=== PATIENT | female | born 1985 | race Caucasian/White ===

== ENCOUNTER → 2020-07-18 | Outpatient (CLI) | payer OTHER ==
[2015-12-08 08:00] VITALS: BP 106/62
[~2020-07-18] MED LIST: ALBU2.5V8 INH; CLON1TAB PO; DOCU-109 PO; IBUP-1060 PO; OXYC1TAB15 PO; SERT100T PO
--- NOTE | 2020-07-18 10:56 | KCIC ---
MRI of the lumbar spine without contrast CLINICAL HISTORY: Chronic low back pain which is worsening. TECHNIQUE: Unenhanced T1-weighted and T2-weighted sagittal and axial and inversion recovery sagittal images of the lumbar spine were obtained. FINDINGS: Minimal S-shaped curvature of the thoracolumbar spine is seen. Degenerative signal changes and loss of height are seen involving the L4-5 and L5-S1 discs. A 8mm hemangioma is seen involving th e L1 vertebral body. A 1.3 cm hemangioma is seen involving the L2 vertebral body. The conus medullari s is normal morphology, position, and signal characteristics. The L1-2, L2-3 and L3-4 disc spaces are within normal limits. At the L4-5 disc space there is a mild generalized disc bulge. Superimposed on this disc bulge is a f ocal central disc protrusion. This measures 3 mm in AP diameter. Degenerative changes are seen involv ing the facet joints bilaterally. There are small facet joint effusions bilaterally. There is mild li gamentum flavum hypertrophy bilaterally. These findings when combined do not result in significant ce ntral spinal canal or neural foraminal stenosis. At the L5-S1 disc space there is a mild to moderate generalized disc bulge. This is eccentric to the left. Degenerative changes are seen involving the facet joints bilaterally. There are small facet myriam nt effusions bilaterally. These findings do not result in significant central spinal canal or neural foraminal stenosis. IMPRESSION: The changes of degenerative disc disease are seen involving the lower lumbar spine. These findings do not result in significant central spinal canal or neural foraminal stenosis. Electronically signed by: Eitan Hutchins MD (07/18/2020 10:54 AM) [id number]
== END ==
LOC: KCIC MRI 08:29
PROVIDERS: ATTEND Family Medicine
DX: M47.817 Spondylosis without myelopathy or radiculopathy, lumbosacral region (principal); M48.07 Spinal stenosis, lumbosacral region; G89.29 Other chronic pain
CPT/HCPCS: 72148

== ENCOUNTER → 2021-01-09 | Outpatient (CLI) | payer OTHER ==
[2015-12-08 08:00] VITALS: BP 106/62
[~2021-01-09] MED LIST changes: +CARI3CAP PO; +LAMO50TA3 PO; +OMEP40CA7 PO; +SERT50TA PO
--- NOTE | 2021-01-09 15:30 | PDOC1 ---
INITIAL PAIN CONSULT DATE OF SERVICE: DOS: DATE: 01/09/21 TIME: 15:24 CHIEF COMPLAINT: Chief Complaint: Low back and left lower extremity pain HISTORY OF PRESENT ILLNESS: 35-year-old female presents with history of pain low back left lower extremity for 10 years plus not the result of any specific injury or accident that she is aware but has significant pain in the low back and left lower extremity getting worse over the past 6 to 8 months without any specific injury or accident patient reports is getting worse with walking standing changing positions with pain in the low back radiating to the left posterior gluteus posterior thigh posterior calf into the ankle and foot, no motor loss but significant fatigability of the left lower extremity with standing walking. Patient reports is worse with sitting for greater than 30 minutes wakes her from sleep about 2-3 times a night does not affect her bowel bladder control but does affect her ability to walk and stand which is affecting her ability to work. Patient reports has had physical therapy also chiropractic treatment also currently doing exercise which were all temporarily helpful but only for about 2 to 3 days to week patient is taking hydrocodone which does decrease the pain has had this most recently as yesterday. Patient reports her disability rating 0-10 10 being the worst is an 8 with family home responsibilities and recreation as well as self-care and life support activities 6 with social activity 5 with sexual behavior 9 with occupational activities. Patient did have an MRI scan lumbar spine showing L4-5 mild generalized disc bulge with focal central disc protrusion superimposed L5-S1 showing mild to moderate generalized disc bulging eccentric to the left with small facet joint effusions bilaterally as well. Patient reports no bowel or bladder incontinence. PAST MEDICAL HISTORY: PMH: Arthritis, cigarette smoking PREVIOUS SURGERIES: Past Surgical Hx: Hysterectomy 2016, right foot surgery 2016. CURRENT MEDICATIONS: Current Meds: Active Scripts Medications Dose Route/Sig Max Daily Dose Days Date Category Omeprazole 40 Mg Capsule.dr 1 Cap PO DAILY 01/09/21 Reported Vraylar (Cariprazine Hydrochloride) 3 Mg Capsule 1 Cap PO DAILY 30 01/09/21 Reported Lamotrigine 50 Mg Tab.er.24 1 Tab PO DAILY 30 01/09/21 Reported Zoloft (Sertraline Hcl) 50 Mg Tablet 1 Tab PO DAILY 01/09/21 Reported Percocet 5-325 Mg Tablet (Oxycodone/Acetaminophen) 1 Each Tablet 1-2 Tab PO Q4-6HRS 12/08/15 Rx Colace (Docusate Sodium) 100 Mg Capsule 1 Cap PO BID 12/08/15 Rx ALLERGIES; Allergies: Coded Allergies: No Known Drug Allergies (Unverified , 12/07/15) FAMILY HISTORY: Family Hx: Breast cancer SOCIAL HISTORY: Social Hx: Patient drinks alcohol very rarely smokes cigarettes about half a pack a day has since 2002 continues smoke does not use any illegal illicit or recreational drugs, is single lives locally in [facility] and 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 REVIEW OF SYSTEMS: ROS: Positive for those items mentioned in history of present illness, all systems a re reviewed, otherwise negative ,and are complete full and well-documented on patient's chart. PHYSICAL EXAM: VS: Blood pressure 147/108 pulse 74 respirations 18 temperature 98.5 F height is 5 feet 10 inches weight is 277 pounds PE: PHYSICAL EXAMINATION: GENERAL: The patient is awake, alert, oriented, appropriate, very pleasant in demeanor HEENT: Shows normocephalic, atraumatic. Extraocular movements are intact and symmetrical. Oral cavity: Mucous membranes moist and pink. Dentition is intact. NECK: Shows anterior throat supple without palpable lymphadenopathy noted. Swal low reflex symmetrical. CHEST: Shows normal on inspection. Breath sounds are clear bilaterally, distant no rales rhonchi or wheeze. HEART: Shows S1, S2 clear. No murmurs auscultated. ABDOMEN: Soft, nontender, nondistended, obese. No palpable organomegaly is noted. No rebound or guarding demonstrated. BACK: Shows spine grossly in the midline. Normal-appearing cervical lordotic curvature. T no here is slightly increased thoracic kyphosis, some minor flattening of the lumbar lordotic curvature. Lumbar paraspinous muscles show symmetrical on inspection, on palpation shows some moderate tenderness diffusely throughout the upper, middle and lower distribution of the paraspinous muscles bilaterally and also into the lower thoracic paraspinous musculature, firm and tender, but without specific trigger points, without radiation of pain. The patient has good rotational motion of the lumbar spine, both laterally as well as extension and flexion without significant difficulty. No tenderness over the spinous processes, sacrum or sacroiliac regions. EXTREMITIES: Lower extremities show deep tendon reflexes 2+ in the patellar and tendo calcaneus tendons. Motor exam is 5 on a scale of 5 with right dorsiflexion, extension, quadriceps and hamstring flexion and 4/5 on the left. Peripheral pulses are 1+ posterior tibial. No peripheral edema is noted bilaterally. Lower extremities are warm and dry to touch, equal in color and appearance. Straight leg raise noted to be positive on the left at approximately 40 degrees, decreased with knee flexion right side is negative. Gaenslen's and Corona's maneuvers are negative bilaterally. The patient is able to stand, stand on her toes without difficulty loss of balance walks with a slight favoring gait does appear to favor the left lower extremity slightly but not use any assistive device such as canes or walkers to ambulate. SKIN: Shows warm and dry, good turgor. No edema. No sores, rashes or bruising throughout. IMPRESSION: Impression: 35-year-old female with long history low back left lower extremity pain in a radicular fashion following L5-S1 dermatomal distribution. Patient status post physical therapy as well as chiropractic treatment and current exercise and medication management without significant improvement in her radicular pain. MRI scan lumbar spine as noted Arthritis Cigarette smoking Plan: Options were discussed the patient including continued physical therapies interventional techniques and medication management patient would like to pursue interventional techniques. We discussed a lumbar epidural steroid injections description as well as anatomical models to describe the procedure. Patient with preauthorization with insurance provider once this is obtained we will have her return for a translaminar approach L5-S1 lumbar epidural steroid injection with fluoroscopic guidance. In the meantime, patient will continue with stretching strength exercises and also will call [employer] in for her to try in the meantime. Patient given instructions well side effects beware with the medication GEO MONTES DE OCA MD Jan 09, 2021 15:30
== END | disposition home or self-care (01) ==
LOC: PNCL 14:15
PROVIDERS: ATTEND Anesthesiology
DX: M79.605 Pain in left leg (principal); M54.59 Other low back pain; J45.909 Unspecified asthma, uncomplicated; F41.9 Anxiety disorder, unspecified; F32.9 Major depressive disorder, single episode, unspecified; F17.210 Nicotine dependence, cigarettes, uncomplicated; Z79.899 Other long term (current) drug therapy; Z98.890 Other specified postprocedural states
CPT/HCPCS: 99214; G0463